=== PATIENT | male | born 1990 | race Two or more races ===

== ENCOUNTER 2022-01-12 20:13 | Inpatient (IN) | payer MEDICAID, OTHER ==
[~2022-01-12] VITALS: Ht 167.6 cm; Wt 95.3 kg
[~2022-01-12 20:13] MED LIST: DIVA500T54; OLANZAPINE 10 MG TABLET
--- NOTE | 2022-01-12 20:20 | NUR ---
[facility] 66 FROM HOME FAMILY W[facility]NESS PT OD ON APPROX 20 PILLS OF DEPAKOTE ABOUT 1.5 HOURS AGO. PT AWAKE AND RESPONSIVE. TOLERATING R/A WELL WITH NO SOB. CONNECTED PT TO POX AND MONITOR
--- NOTE | 2022-01-12 20:21 | NUR ---
[employer] AT PT'S BEDSIDE
--- NOTE | 2022-01-12 20:34 | NUR ---
CALLED POISON CONTROL AND SPOKE WITH SARAH. ADVISED IF PATIENT IS NOT VOMITTING OR SEDATED, GIVE CHARCOAL. 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 CHECK TYENOL, ASPIRIN AND COMPLETE METABOLIC PANEL . MONITOR DEPAKOTE AND AMMONIA LEVELS EVERY 4 HOURS. ADMINISTER BENZOPEDIAZEPINES IF SEIZURES OCCUR AND INTUBATE IF NECESSARY
[2022-01-12] MEDS ORDERED: ACTIVATED CHARCOAL 25 GM/120 ML TUBE ONE ×2 (20:37→20:40)
[2022-01-12 20:40] LABS: BASOPHILS % (AUTO) 0.4 % (0.0-2.0); EOSINOPHILS % (AUTO) 0.3 % (0.0-6.0); HEMATOCRIT 48 % (39-51); HEMOGLOBIN 16.2 g/dL (13.5-17.5); LYMPHOCYTES # (AUTO) 2.4 K/uL (0.8-4.8); LYMPHOCYTES % (AUTO) 26.6 % (20.0-44.0); MEAN CORPUSCULAR HGB CONC 34 g/dl (31.0-36.0); MEAN CORPUSCULAR VOLUME 86 fL (80-96); MONOCYTES # (AUTO) 0.4 K/uL (0.1-1.30); MONOCYTES % (AUTO) 4.5 % (2.0-12.0); NEUTROPHILS # (AUTO) 6.2 K/uL (1.8-8.9); NEUTROPHILS % (AUTO) 68.2 % (43.0-81.0); PLATELET COUNT (AUTO) 270 K/uL (150-450); RED BLOOD CELL COUNT(AUTO) 5.63 MIL/uL (4.5-6.0); WHITE BLOOD COUNT (AUTO) 9.1 K/uL (4.3-11.0)
[2022-01-12 20:47] LABS: CALCIUM, SERUM 9.3 mg/dL (8.5-10.1); CARBON DIOXIDE 27 mmol/L (21-32); CHLORIDE 97 mmol/L (98-107); CREATININE 1.4 mg/dL (0.6-1.3); GLUCOSE 115 mg/dL (74-106); POTASSIUM 3.4 mmol/L (3.5-5.1); SODIUM SERUM 135 mmol/L (136-145); UREA NITROGEN, BLOOD 22 mg/dL (7-18)
[2022-01-12 20:53] LABS: ALANINE AMINOTRANSFERASE 12 U/L (12-78); ALBUMIN 4.3 g/dL (3.4-5.0); ALCOHOL, BLOOD < 3 mg/dL (0-0); ALKALINE PHOSPHATASE 73 U/L (46-116); ASPARTATE AMINOTRANSFERASE 12 U/L (15-37); BILIRUBIN,DIRECT 0.1 mg/dL (0.0-0.2); BILIRUBIN,TOTAL 0.6 mg/dL (0.2-1.0)
--- NOTE | 2022-01-12 20:58 | NUR ---
urine collected and sent to lab
[2022-01-12] MEDS ORDERED: ACTIVATED CHARCOAL 25 GM/120 ML TUBE PO ONE (21:00)
[2022-01-12] MEDS ORDERED: IV NS 0.9% 1,000 ML BAG IV ONE (21:00)
[2022-01-12 21:07] LABS: ACETAMINOPHEN 0 ug/ml (10-30)
[2022-01-12 21:09] LABS: LYMPHOCYTES % (MANUAL) 29 % (16-48); MONOCYTES % (MANUAL) 5 % (0-11.0); NEUTROPHILS % (MANUAL) 66 (42-76)
[2022-01-12 21:13] LABS: BILIRUBIN,URINE SMALL (NEGATIVE); COLOR,URINE DARK YELLOW (YELLOW); LEUKOCYTE ESTERASE ,URINE NEGATIVE (NEGATIVE); NITRITE, URINE NEGATIVE (NEGATIVE); PROTEIN,URINE 30 mg/dl (NEGATIVE); UGLUCOSE NEGATIVE (NEGATIVE)
[2022-01-12 21:40] LABS: BACTERIA,URINE RARE /HPF (None Seen); MUCUS,URINE Many /LPF (None Seen); WBC,URINE 0-2 /HPF (0-3)
[2022-01-12 21:44] LABS: VALPROIC ACID 311 ug/mL (50-100)
--- NOTE | 2022-01-12 21:45 | NUR ---
VALPROIC ACID 311
--- NOTE | 2022-01-12 21:52 | NUR ---
[facility]SA SWAB COLLECTED AND SENT TO LAB. PATIENT'S BELONGINGS LIST DONE.
[2022-01-12] MEDS ORDERED: IV NS 0.9% 1,000 ML IV PRN (22:00)
[2022-01-12] MEDS ORDERED: ONDANSETRON HCL/PF 4 MG/2 ML VIAL IVP PRN (22:00)
--- NOTE | 2022-01-12 23:18 | NUR ---
GOT A CALL FROM POISON CONTROL. CONTINUE TO MONITOR VALPROIC ACID AND AMMONIA LEVELS FOR 4 HOURS. IF AMMONIA > 100, CALL BACK.
[2022-01-13 03:25] LABS: BASOPHILS # (AUTO) 0.1 K/uL (0.0-0.2); BASOPHILS % (AUTO) 0.6 % (0.0-2.0); EOSINOPHILS % (AUTO) 0.6 % (0.0-6.0); HEMATOCRIT 45 % (39-51); HEMOGLOBIN 15.1 g/dL (13.5-17.5); LYMPHOCYTES # (AUTO) 3.7 K/uL (0.8-4.8); LYMPHOCYTES % (AUTO) 36.1 % (20.0-44.0); MEAN CORPUSCULAR HGB CONC 34 g/dl (31.0-36.0); MEAN CORPUSCULAR VOLUME 86 fL (80-96); MONOCYTES # (AUTO) 0.5 K/uL (0.1-1.30); MONOCYTES % (AUTO) 4.7 % (2.0-12.0); NEUTROPHILS # (AUTO) 5.9 K/uL (1.8-8.9); PLATELET COUNT (AUTO) 249 K/uL (150-450); RED BLOOD CELL COUNT(AUTO) 5.22 MIL/uL (4.5-6.0); WHITE BLOOD COUNT (AUTO) 10.2 K/uL (4.3-11.0)
[2022-01-13 03:41] LABS: CALCIUM, SERUM 8.6 mg/dL (8.5-10.1); CREATININE 1.2 mg/dL (0.6-1.3); MAGNESIUM 2.2 mg/dL (1.8-2.4); PHOSPHORUS 4.1 mg/dL (2.5-4.9); POTASSIUM 3.6 mmol/L (3.5-5.1)
[2022-01-13] MEDS ORDERED: DIVA-78 PO (07:04)
[2022-01-13] MEDS ORDERED: OLAN7.5T3 PO (07:04)
--- NOTE | 2022-01-13 07:05 | NUR ---
AWARE THAT PT WANTS TO BE DISCHARGED AND WILLING TO SIGN AMA FORM.
--- NOTE | 2022-01-13 07:10 | NUR ---
PT STATED HE WANTS TO BE DISCHARGED "I FEEL FINE AND IM NOT SUICIDAL"
--- NOTE | 2022-01-13 07:20 | NUR ---
Patient does not wish to proceed with medical care recommended by Dr. Vasquez. Patient given information related to possible complications, up to and including , which could occur as a result of leaving the hospital at this time. Patient verbalizes understanding of risks involved due to leaving against medical advice. Patient has signed AMA form.
[2022-01-13 07:22] VITALS: BP 120/59
[2022-01-13] MEDS ORDERED: PANTOPRAZOLE 40 MG VIAL IV SCH (09:00)
== END 2022-01-13 19:20 | disposition left against medical advice (07) | DRG 817 ==
LOC: ER 20:15 → TRANSITION 01-13 05:43
PROVIDERS: ATTEND Student in an Organized Health Care Education/Training Program
DX: T42.6X2A Poisoning by other antiepileptic and sedative-hypnotic drugs, intentional self-harm, initial encounter (principal); E87.6 Hypokalemia; Y92.009 Unspecified place in unspecified non-institutional (private) residence as the place of occurrence of the external cause; Z20.822 Contact with and (suspected) exposure to COVID-19; Z53.29 Procedure and treatment not carried out because of patient's decision for other reasons; F17.200 Nicotine dependence, unspecified, uncomplicated
CPT/HCPCS: 36415; 80048-TC; 80076-TC; 80164-TC; 81001; 82140-TC; 83735-TC; 84100-TC; 85025-TC; 87081-TC; C9113; C9803; G0378; G0480; J7030